=== PATIENT | male | born 1975 | race Caucasian/White ===

== ENCOUNTER 2017-02-24 07:59 | Inpatient (IN) | payer BC, OTHER ==
[~2017-02-24] VITALS: Ht 182.9 cm; Wt 79.4 kg
--- NOTE | 2017-02-24 21:00 | NUR ---
Pre admission note Pt seen in intake office. Pt appears sober and stable at this time. V/S WNL. No s/s of distress noted at this time. Respirations even and unlabored. Policies on medication disposal explained to and understood by patient. Will admit patient to unit.
[2017-02-24] MEDS ORDERED: THIAMINE HCL 200 MG/2 ML VIAL IM ONE (21:15)
[2017-02-24] MEDS ORDERED: LORAZEPAM 1 MG TABLET PO PRN (21:15)
[2017-02-24] MEDS ORDERED: ACETAMINOPHEN 325 MG TABLET PO PRN (21:15)
[2017-02-24] MEDS ORDERED: LOPERAMIDE HCL 2 MG CAPSULE PO PRN ×2 (21:15)
[2017-02-24] MEDS ORDERED: MAGNESIUM HYDROXIDE 30 ML LIQUID UDC PO PRN (21:15)
[2017-02-24] MEDS ORDERED: ONDANSETRON 4 MG/2 ML VIAL IM PRN (21:15)
[2017-02-24] MEDS ORDERED: diphenhydrAMINE 50 MG CAPSULE PO PRN (21:15)
[2017-02-24] MEDS ORDERED: MAG HYDROX/AL HYDROX/SIMETH 30 ML LIQUID UDC PO PRN (21:15)
[2017-02-24] MEDS ORDERED: MIRALAX 17 GM POWD.PACK PO PRN (21:15)
[2017-02-24] MEDS ORDERED: LORAZEPAM 2 MG/1 ML VIAL IM PRN (21:15)
[2017-02-24] MEDS ORDERED: ONDANSETRON ODT 4 MG TAB.RAPDIS SL PRN (21:15)
--- NOTE | 2017-02-24 21:30 | NUR ---
Admission note Pt is a 41 yo male, A+Ox4, presenting to [facility] for ETOH dependence. Pt has NKA, is on Full Code status, and on Regular diet. Pt is 6'0" in height and 175 LBS in weight. Pt has medical HX of Pancreatitis, Seizure, HTN, and Depression. Pt has family HX of Alcohol abuse from Mother, Father, and Brother. Pt has no primary care provider. Pt has been drinking Alcohol for 20 years, has reached a level of 14-24 beers/daily, and last drink was 6 beers on 02-24-17 @1100. Pt has been taking home medications as follows: Zoloft 100mg 1 tablet QD-Last dose 1 tablet on 02-24-17 @2100, Lisinopril HCTZ 10-12.5mg 1 tablet QD-Last dose 1 tablet on 02-24-17 @1100. Pt has HX of previous detox/rehab for 5 days @ [facility] in [place], [place] in December 2016. This was the patients last time sober. Pt has been a cigarette smoker for 25 years and has reached a level of 15/daily. Pt appears sober and stable at this time. V/S WNL. No s/s of distress noted at this time. Respirations even and unlabored. Will continue to monitor.
[2017-02-24 21:56] LABS: *AMPHETAMINE, URINE NEGATIVE (NEGATIVE); *BARBITURATE, URINE NEGATIVE (NEGATIVE); *CANNABINOID, URINE NEGATIVE (NEGATIVE); *COCCAINE, URINE NEGATIVE (NEGATIVE); *OPIATE, URINE NEGATIVE (NEGATIVE); *PHENCYCLIDINE SCREEN,URINE NEGATIVE (NEGATIVE)
[2017-02-24 22:27] LABS: ALANINE AMINOTRANSFERASE 37 U/L (16-63); ALKALINE PHOSPHATASE 71 U/L (50-136); AMYLASE 47 U/L (25-115); ASPARTATE AMINOTRANSFERASE 24 U/L (15-37); BILIRUBIN,TOTAL 0.4 mg/dL (0.2-1.0); CARBON DIOXIDE 29 mmol/L (21-32); CHLORIDE 101 mmol/L (98-107); CREATININE 1.1 mg/dL (0.6-1.3); GLUCOSE 129 mg/dL (74-106); LIPASE 246 U/L (73-393); MAGNESIUM 2.1 mg/dL (1.8-2.4); POTASSIUM 3.8 mmol/L (3.5-5.1); TOTAL PROTEIN, SERUM 8.2 g/dL (6.4-8.2); UREA NITROGEN, BLOOD 14 mg/dL (7-18)
[2017-02-24 22:28] LABS: ETHANOL < 3 MG/DL (0-0)
[2017-02-24 22:30] LABS: BASOPHILS # (AUTO) 0.1 K/uL (0.0-8.0); BASOPHILS % (AUTO) 1.6 % (0.0-2.0); EOSINOPHILS # (AUTO) 0.1 K/uL (0.0-0.7); EOSINOPHILS % (AUTO) 1.2 % (0.0-7.0); HEMOGLOBIN 15.9 G/DL (14.0-18.0); LYMPHOCYTES # (AUTO) 1.9 K/UL (0.8-4.8); LYMPHOCYTES % (AUTO) 27.1 % (20.5-51.5); MEAN CORPUSCULAR HGB CONC 35 g/dL (32.0-37.0); MEAN CORPUSCULAR VOLUME 95.4 FL (82.0-92.0); MONOCYTES # (AUTO) 0.8 K/UL (0.1-1.30); MONOCYTES % (AUTO) 11.2 % (0.0-11.0); NEUTROPHILS % (AUTO) 58.9 % (38.5-71.5); PLATELET COUNT (AUTO) 217 K/UL (150-450); RED BLOOD CELL COUNT(AUTO) 4.82 MIL/UL (4.7-6.1); WHITE BLOOD COUNT (AUTO) 6.9 K/UL (4.0-11.2)
[2017-02-24 22:38] LABS: THYROID STIMULATING HORMONE 6.545 mIU/mL (0.358-3.740)
[2017-02-24] MEDS ORDERED: LISI1TAB9 PO (22:38)
[2017-02-24] MEDS ORDERED: SERT100T PO (22:38)
[2017-02-24] MEDS: LORAZEPAM 1 MG TABLET PO PRN (23:35)
--- NOTE | 2017-02-24 23:35 | NUR ---
PRN Ativan Pt c/o anxiety and noted with CIWA 6. PRN Ativan 1mg given and tolerated well. Will reassess within 1 HR. Will continue to monitor.
[2017-02-24] MEDS ORDERED: LORAZEPAM 1 MG TABLET ONE (23:39)
[2017-02-24] MEDS ORDERED: THIAMINE HCL 200 MG/2 ML VIAL ONE (23:39)
--- NOTE | 2017-02-25 00:30 | NUR ---
PRN Ativan Reassessment Medication effective. CIWA 3. No s/s of ASE/distress noted at this time. Respirations even and unlabored. Will continue to monitor.
[2017-02-25 00:59] VITALS: BP 131/97
[2017-02-25] MEDS: DICYCLOMINE HCL 20 MG TABLET PO PRN ×2 (04:20→12:27)
[2017-02-25] MEDS: LORAZEPAM 1 MG TABLET PO PRN ×2 (04:20→08:58)
--- NOTE | 2017-02-25 04:22 | NUR ---
PRN Ativan and Bentyl Pt c/o anxiety and abdominal spasms and noted with CIWA 6. PRN Ativan 1mg and PRN Bentyl given and tolerated well. Will reassess within 1 HR. Will continue to monitor.
[2017-02-25 04:27] VITALS: BP 146/87
[2017-02-25] MEDS ORDERED: LORAZEPAM 1 MG TABLET ONE (04:30)
[2017-02-25] MEDS ORDERED: DICYCLOMINE HCL 20 MG TABLET ONE (04:30)
--- NOTE | 2017-02-25 05:20 | NUR ---
PRN Ativan and Bentyl Reassessment Medications effective. Pt expresses reduction in abdominal spasms. CIWA:4. No s/s of ASE/distress noted at this time. Respirations even and unlabored. Will continue to monitor.
--- NOTE | 2017-02-25 06:55 | NUR ---
End of shift note Pt is a 41 yo male, A+Ox4, presenting to [facility] for ETOH dependence. Pt has NKA, is on Full Code status, and on Regular diet. Pt has medical HX of Pancreatitis, Seizure, HTN, and Depression. Pt is on Fall and Seizure precautions. Pt is on PRN medications until evaluation for taper by MD in AM. Pt was given PRN Ativan @2335 and PRN Ativan and Bentyl @0422. Pt slept for a total of 1 HR. Last CIWA: 4 @0520. No s/s of distress noted at this time. Respirations even and unlabored. Will endorse to day shift nurse.
--- NOTE | 2017-02-25 07:10 | NUR ---
Start of Shift Endorsement received from nightshift nurse. Pt is a 41 y/o male admitted for alcohol. Pt has been placed on a 5 day Ativan taper. Pt is tolerating the taper and moderately withdrawing AEB CIWA 9 at 0000. Pt has received PRN Ativan x2 and Bentyl for withdrawal symptoms. Pt reports sleeping 2 hours. VS WNL. Full Code. PT is alert and oriented x4. Pt is in STABLE condition at this time. Remains compliant with medication and diet regimen. All needs have been met, All safety measures in place per hospital policy. Bed in lowest position, side rails up x2, call-light within reach. Will continue to monitor
[2017-02-25 08:00] VITALS: BP 122/78
[2017-02-25] MEDS: THIAMINE HCL 100 MG TABLET PO SCH (08:53)
[2017-02-25] MEDS: FOLIC ACID 1 MG TABLET PO SCH (08:53)
[2017-02-25] MEDS: MULTIVITAMINS,THERAPEUTIC TABLET PO SCH (08:53)
[2017-02-25] MEDS ORDERED: TUBERCULIN,PURIF.PROT.DERIV. 5 TU/0.1 ML TEST ID ONE (09:00)
[2017-02-25] MEDS ORDERED: LORAZEPAM 1 MG TABLET PO PRN ×2 (10:15)
[2017-02-25] MEDS: SERTRALINE HCL 100 MG TABLET PO SCH (10:51)
[2017-02-25 12:00] VITALS: BP 141/94
[2017-02-25] MEDS: LORAZEPAM 1 MG TABLET PO SCH ×3 (12:27→20:51)
--- NOTE | 2017-02-25 12:27 | NUR ---
THONY Christiansen Administered PRN Bentyl for stomach cramps per Dr. Kendrick.
--- NOTE | 2017-02-25 13:51 | NUR ---
Therapist prompted clients about group times. Client stated he just got in and he will start attending group once he feels better.
[2017-02-25] MEDS: GABAPENTIN 300 MG CAPSULE PO SCH ×2 (15:30→20:51)
[2017-02-25 16:00] VITALS: BP 142/97
--- NOTE | 2017-02-25 18:49 | NUR ---
End of Shift Endorsement given to nightshift nurse. Pt is a 41 y/o male admitted for alcohol. Pt has been placed on a 5 day Ativan taper. Pt is tolerating the taper and moderately withdrawing AEB CIWA 6 at 1600. Pt has received PRN Ativan 1mg per MD for CIWA 8. PT has participated in groups and activities. Pt has received Bentyl for stomach cramps. Intake: 2300ml, Void x3, BM x1. VS WNL. Full Code. PT is alert and oriented x4. Pt is in STABLE condition at this time. Remains compliant with medication and diet regimen. All needs have been met, All safety measures in place per hospital policy. Bed in lowest position, side rails up x2, call-light within reach. Will continue to monitor
--- NOTE | 2017-02-25 19:02 | NUR ---
Start of shift note Received report from day shift nurse. Pt is a 41 yo male, A+Ox4, presenting to [facility] for ETOH dependence. Pt has NKA, is on Full Code status, and on Regular diet. Pt has medical HX of Pancreatitis, Seizure, HTN, and Depression. Pt is on Fall and Seizure precautions. Pt is on 5 day Ativan taper, tolerated well. No s/s of distress noted at this time. Respirations even and unlabored. Will continue to monitor.
[2017-02-25 20:12] VITALS: BP 151/107
[2017-02-25] MEDS: CLONIDINE HCL 0.1 MG TABLET PO PRN (20:51)
--- NOTE | 2017-02-25 20:51 | NUR ---
PRN Clonidine PT noted with b/p= 154/107. PRN Clonidine given and tolerated well. Will reassess within 1 HR. Will continue to monitor.
--- NOTE | 2017-02-25 21:45 | NUR ---
PRN Clonidine Reassessment Medication effective. B/P= 145/92. No s/s of ASE/distress noted at this time. Respirations even and unlabored. Will continue to monitor.
[2017-02-26 00:24] VITALS: BP 125/88
[2017-02-26 04:12] VITALS: BP 128/85
[2017-02-26] MEDS: HYDROXYZINE PAMOATE 25 MG CAPSULE PO PRN ×2 (06:06→23:28)
--- NOTE | 2017-02-26 06:06 | NUR ---
PRN Vistaril PT c/o anxiety and requested for PRN Vistaril. Medication given and tolerated well. Will reassess within 1 HR. Will continue to monitor.
--- NOTE | 2017-02-26 06:52 | NUR ---
PRN Vistaril Reassessment Medication moderately effective. No s/s of ASE/distress noted at this time. Respirations even and unlabored. Will continue to monitor.
--- NOTE | 2017-02-26 07:00 | NUR ---
End of shift note Pt is a 41 yo male, A+Ox4, presenting to [facility] for ETOH dependence. Pt has NKA, is on Full Code status, and on Regular diet. Pt has medical HX of Pancreatitis, Seizure, HTN, and Depression. Pt is on Fall and Seizure precautions. Pt is on 5 day Ativan taper, tolerated well. Pt was given PRN Clonidine @1 and PRN Vistaril @0606. Pt slept for a total of 9 HRS. Last CIWA: 3 @0400. No s/s of distress noted at this time. Respirations even and unlabored. Will endorse to day shift nurse.
[2017-02-26 07:11] LABS: HEPATITIS B SURFACE AG Negative (Negative)
--- NOTE | 2017-02-26 07:30 | NUR ---
START OF SHIFT Pt 24 y/o male admitted for etoh dependence. Pt received in room awake on bed watching television. Pt alert and oriented to name, place, and time. Perrla. Skin warm and moist to touch. Respirations even and unlabored. Pt with bilateral hand tremors noted. Pt states has body aches. It was reported that pt slept for 9 hours last night. Bed on lowest position with side rails x2 up for safety. Call light within reach. No distress noted at this time.
[2017-02-26 08:00] VITALS: BP 130/90
[2017-02-26] MEDS: SERTRALINE HCL 100 MG TABLET PO SCH (08:22)
[2017-02-26] MEDS: IBUPROFEN 400 MG TABLET PO PRN (08:22)
[2017-02-26] MEDS: LORAZEPAM 1 MG TABLET PO SCH ×3 (08:22→20:18)
[2017-02-26] MEDS: THIAMINE HCL 100 MG TABLET PO SCH (08:22)
[2017-02-26] MEDS: LISINOPRIL 10 MG TABLET PO SCH (08:22)
[2017-02-26] MEDS: HYDROCHLOROTHIAZIDE 12.5 MG CAPSULE PO SCH (08:22)
[2017-02-26] MEDS: FOLIC ACID 1 MG TABLET PO SCH (08:22)
--- NOTE | 2017-02-26 08:22 | NUR ---
PRN Pt with c/o headache 10/27. Motrin po prn per MD order given and tolerated well.
[2017-02-26] MEDS: MULTIVITAMINS,THERAPEUTIC TABLET PO SCH (08:23)
[2017-02-26] MEDS: GABAPENTIN 300 MG CAPSULE PO SCH ×3 (08:23→20:18)
[2017-02-26] MEDS ORDERED: HCTZ PO SCH (09:00)
[2017-02-26] MEDS ORDERED: LISINOPRIL PO SCH (09:00)
--- NOTE | 2017-02-26 09:22 | NUR ---
THONY YUSUF Pt states headache 2/10 at this time. Pt observed in room on bed watching television.
--- NOTE | 2017-02-26 09:50 | NUR ---
NSG ENTRY MD aware of tsh=6.5.
[2017-02-26 12:00] VITALS: BP 128/82
[2017-02-26] MEDS: METHOCARBAMOL 750 MG TABLET PO PRN (13:22)
--- NOTE | 2017-02-26 13:25 | NUR ---
PRN Pt with c/o body aches 7/10 generalized. robaxin po prn per MD order given and tolerated well.
--- NOTE | 2017-02-26 14:25 | NUR ---
PRN EVAL Pt observed in bed watching television. No c/o pain noted at this time.
[2017-02-26 16:00] VITALS: BP 132/68
--- NOTE | 2017-02-26 18:00 | NUR ---
END OF SHIFT Pt 41 y/o male admitted for ETOH dependence. Pt alert and oriented to name, place, and time. Perrla. Skin warm and slightly moist to touch. Respirations even and unlabored. Bilateral hand tremors noted slightly. Pt observed mostly in room, but did attend group activity. Pt was seen by MD today. Pt medication compliant and tolerated well. No ASE noted. Bed on lowest position with side rails x2 up for safety. Call light within reach. No distress noted at this time.
--- NOTE | 2017-02-26 19:11 | NUR ---
Start of shift note Received report from day shift nurse. Pt is a 41 yo male, A+Ox4, presenting to [facility] for ETOH dependence. Pt has NKA, is on Full Code status, and on Regular diet. Pt has medical HX of Pancreatitis, Seizure, HTN, and Depression. Pt is on Fall and Seizure precautions. Pt is on 5 day Ativan taper, tolerated well. No s/s of distress noted at this time. Respirations even and unlabored. Will continue to monitor.
[2017-02-26 20:15] VITALS: BP 131/98
--- NOTE | 2017-02-26 23:28 | NUR ---
PRN Vistaril PT c/o anxiety and requested for PRN Vistaril. Medication given and tolerated well. Will reassess within 1 HR. Will continue to monitor.
[2017-02-27 00:10] VITALS: BP 135/81
--- NOTE | 2017-02-27 00:20 | NUR ---
PRN Vistaril Reassessment Medication effective. No s/s of ASE/distress noted at this time. Respirations even and unlabored. Will continue to monitor.
[2017-02-27 04:40] VITALS: BP 133/84
--- NOTE | 2017-02-27 07:00 | NUR ---
End of shift note Pt is a 41 yo male, A+Ox4, presenting to [facility] for ETOH dependence. Pt has NKA, is on Full Code status, and on Regular diet. Pt has medical HX of Pancreatitis, Seizure, HTN, and Depression. Pt is on Fall and Seizure precautions. Pt is on 5 day Ativan taper, tolerated well. Pt was given PRN Vistaril @2328. Pt slept for a total of 7 HRS. Last CIWA: 3 @0400. No s/s of distress noted at this time. Respirations even and unlabored. Will endorse to day shift nurse.
--- NOTE | 2017-02-27 07:45 | NUR ---
START OF SHIFT Pt 24 y/o male admitted for etoh dependence. Pt received in awake walking around the hallway. Pt alert and oriented to name, place, and time. Perrla. Skin warm and moist to touch. Respirations even and unlabored. Pt with bilateral hand tremors noted. Pt states has body aches. It was reported that pt slept for 7 hours last night. Bed on lowest position with side rails x2 up for safety. Call light within reach. No distress noted at this time.
[2017-02-27 08:40] VITALS: BP 134/104
[2017-02-27] MEDS: THIAMINE HCL 100 MG TABLET PO SCH (09:01)
[2017-02-27] MEDS: MULTIVITAMINS,THERAPEUTIC TABLET PO SCH (09:02)
[2017-02-27] MEDS: SERTRALINE HCL 100 MG TABLET PO SCH (09:02)
[2017-02-27] MEDS: FOLIC ACID 1 MG TABLET PO SCH (09:02)
[2017-02-27] MEDS: GABAPENTIN 300 MG CAPSULE PO SCH ×3 (09:02→20:28)
[2017-02-27] MEDS: LISINOPRIL 10 MG TABLET PO SCH (09:02)
[2017-02-27] MEDS: LORAZEPAM 1 MG TABLET PO SCH ×4 (09:02→20:27)
[2017-02-27] MEDS: HYDROCHLOROTHIAZIDE 12.5 MG CAPSULE PO SCH (09:02)
[2017-02-27] MEDS: METHOCARBAMOL 750 MG TABLET PO PRN (09:02)
[2017-02-27] MEDS: IBUPROFEN 400 MG TABLET PO PRN (09:02)
--- NOTE | 2017-02-27 09:02 | NUR ---
PRN Pt states has body aches 5/10.
--- NOTE | 2017-02-27 09:02 | NUR ---
PRN Pt states has headache 4/10. Motrin po prn per MD order given and tolerated well.
--- NOTE | 2017-02-27 10:02 | NUR ---
PRN EVAL Pt states body aches 08/29.
--- NOTE | 2017-02-27 10:02 | NUR ---
PRN EVAL Pt states headache 07/29.
[2017-02-27 13:34] VITALS: BP 143/100
[2017-02-27] MEDS: HYDROXYZINE PAMOATE 25 MG CAPSULE PO PRN ×2 (14:00→20:29)
[2017-02-27] MEDS: CLONIDINE HCL 0.1 MG TABLET PO PRN (14:01)
--- NOTE | 2017-02-27 14:01 | NUR ---
PRN Pt with SP=578/102.
--- NOTE | 2017-02-27 14:01 | NUR ---
PRN Pt states feel anxious and restless. Vistaril po prn per MD order given and tolerated well.
--- NOTE | 2017-02-27 15:01 | NUR ---
THONY YUSUF Pt observed in room on bed watching television.
--- NOTE | 2017-02-27 15:01 | NUR ---
PRN EVAL Pt with bp= 138/92.
[2017-02-27 17:24] VITALS: BP 129/82
--- NOTE | 2017-02-27 18:26 | NUR ---
END OF SHIFT Pt 41 y/o male admitted for ETOH dependence. Pt alert and oriented to name, place, and time. Perrla. Skin warm and slightly moist to touch. Respirations even and unlabored. Bilateral hand tremors noted slightly. Pt observed mostly in room this morning, but did attend group activity. Pt was seen by MD today. Pt medication compliant and tolerated well. No ASE noted. Bed on lowest position with side rails x2 up for safety. Call light within reach. No distress noted at this time.
--- NOTE | 2017-02-27 20:29 | NUR ---
PRN: VISTARIL. C/o feeling anxious and wanting to take his night medication. Vistaril given per request. patient tolerated well. Will continue to monitor closely.
--- NOTE | 2017-02-27 20:45 | NUR ---
Rec'd 41 y/o male with cc:ETOH dependence. Patient is afebrile and vital signs are stable. No c/o pain at this time. Patient is on a 5 day Ativan taper and tolerated well. During the day, patient attends group activity. Patient does not ambulates in hallways and mostly stay in his room during the clinical safety manager. No other concerns at this time. Reviewed current plan of care. patient voiced understanding. Pt is on Fall and Seizure precautions. Bed is in the lowest position, side rails are up and call light within reach. Will continue to monitor patient closely.
--- NOTE | 2017-02-27 21:29 | NUR ---
Reassessment. Patient resting comfortably in bed with eyes closed. No signs of distress. Will continue to monitor closely.
[2017-02-27 22:45] VITALS: BP 129/79
[2017-02-28 00:39] VITALS: BP 112/62
--- NOTE | 2017-02-28 02:22 | NUR ---
PRN: Vistaril. Patient c/o feeling anxious and would like to take Vistaril now. Medicated with Vistaril as ordered. Patient tolerated well. Will continue to monitor closely.
[2017-02-28 04:54] VITALS: BP 121/86
--- NOTE | 2017-02-28 06:41 | NUR ---
No interval changes during the shift. Afebrile and vital signs are stable. Respirations even and unlabored. Bilateral hand tremors noted slightly. Pt slept majority of the shift. Ciwa @ 1. No other concerns at this time. All needs were met. Safety and seizure precaution maintained. Bed in lowest position with side rails x2 up for safety. Call light within reach. No distress noted at this time.
--- NOTE | 2017-02-28 07:46 | NUR ---
START OF SHIFT Pt 24 y/o male admitted for etoh dependence. Pt received in awake on bed watching television. Pt alert and oriented to name, place, and time. Perrla. Skin warm and moist to touch. Respirations even and unlabored. Pt with bilateral hand tremors noted. Pt states has body aches this morning. It was reported that pt slept for 8 hours last night. Bed on lowest position with side rails x2 up for safety. Call light within reach. No distress noted at this time.
[2017-02-28] MEDS: LORAZEPAM 1 MG TABLET PO SCH ×3 (08:20→20:22)
[2017-02-28] MEDS: METHOCARBAMOL 750 MG TABLET PO PRN (08:20)
[2017-02-28] MEDS: MULTIVITAMINS,THERAPEUTIC TABLET PO SCH (08:21)
[2017-02-28] MEDS: SERTRALINE HCL 100 MG TABLET PO SCH (08:21)
[2017-02-28] MEDS: HYDROCHLOROTHIAZIDE 12.5 MG CAPSULE PO SCH (08:21)
[2017-02-28] MEDS: HYDROXYZINE PAMOATE 25 MG CAPSULE PO PRN ×3 (08:21→20:22)
[2017-02-28] MEDS: GABAPENTIN 300 MG CAPSULE PO SCH ×2 (08:21→14:18)
[2017-02-28] MEDS: LISINOPRIL 10 MG TABLET PO SCH (08:21)
[2017-02-28] MEDS: FOLIC ACID 1 MG TABLET PO SCH (08:21)
[2017-02-28] MEDS: THIAMINE HCL 100 MG TABLET PO SCH (08:21)
--- NOTE | 2017-02-28 08:27 | NUR ---
PRN Pt states has anxiety. Vistaril po prn per MD order given and tolerated well.
--- NOTE | 2017-02-28 08:27 | NUR ---
PRN Pt states has body aches 6/10. Robaxin po prn per MD order given and tolerated well.
[2017-02-28 08:28] VITALS: BP 127/83
--- NOTE | 2017-02-28 09:27 | NUR ---
THONY YUSUF Pt observed sitting in room watching television. No distress noted at this time.
--- NOTE | 2017-02-28 09:27 | NUR ---
PRN MADELIN Pt states pain 08/29.
[2017-02-28 13:24] VITALS: BP 120/80
--- NOTE | 2017-02-28 14:20 | NUR ---
PRN Pt stated feels anxious. Vistaril po prn per MD order given and tolerated well.
--- NOTE | 2017-02-28 15:20 | NUR ---
PRN EVAL Pt observed walking around unit. Pt states medication was effective.
--- NOTE | 2017-02-28 16:47 | NUR ---
PRN Pt with rf=958/104. Catapres po prn per MD order given and tolerated well. Addendum: 02/28/17 at 1821 by KEMAR LEIVA RN INCORRECT PT
[2017-02-28 17:15] VITALS: BP 141/76
[2017-02-28] MEDS: CLONIDINE HCL 0.1 MG TABLET PO PRN (18:16)
--- NOTE | 2017-02-28 18:17 | NUR ---
PRN Pt states feels anxious. Catapre po prn per MD order given and tolerated well.
--- NOTE | 2017-02-28 18:21 | NUR ---
END OF SHIFT Pt 41 y/o male admitted for ETOH dependence. Pt alert and oriented to name, place, and time. Perrla. Skin warm and slightly moist to touch. Respirations even and unlabored. Bilateral hand tremors noted slightly. `Pt observed mostly in room this morning, but attended group activity. Pt was seen by MD today. Pt medication compliant and tolerated well. No ASE noted. Bed on lowest position with side rails x2 up for safety. Call light within reach. No distress noted at this time.
[2017-02-28] MEDS ORDERED: hydrALAZINE HCL 25 MG TABLET PO PRN (19:00)
[2017-02-28] MEDS ORDERED: BACLOFEN 20 MG TABLET PO PRN (19:00)
[2017-02-28] MEDS: CLONIDINE HCL 0.1 MG TABLET PO SCH (20:21)
[2017-02-28] MEDS: GABAPENTIN 400 MG CAPSULE PO SCH (20:22)
--- NOTE | 2017-02-28 20:22 | NUR ---
PRN Vistaril: Patient c/o feeling anxious and would like Vistaril. Vistaril given as ordered. Will continue to monitor closely.
[2017-02-28] MEDS ORDERED: GABAPENTIN 400 MG CAPSULE ONE (20:31)
[2017-02-28] MEDS ORDERED: CLONIDINE HCL 0.1 MG TABLET ONE (20:31)
[2017-02-28 20:32] VITALS: BP 118/78
--- NOTE | 2017-02-28 20:50 | NUR ---
Start of shift. Rec'd 41 y/o male with cc:ETOH dependence. Patient is afebrile and vital signs are stable. No c/o pain at this time. Patient is on a 5 day Ativan taper and tolerating well. Patient does participate in group meeting and activities. Patient c/o feeling anxious and request Vistaril. CIWA score is 2. No other concerns at this time. Reviewed current plan of care. patient voiced understanding. Pt is on Fall and Seizure precautions. Bed is in the lowest position, side rails are up and call light within reach. Will continue to monitor patient closely.
--- NOTE | 2017-02-28 21:22 | NUR ---
Vistaril reassessment: Patient resting quietly in bed with no signs of distress. Will continue to monitor closely.
[2017-03-01 00:16] VITALS: BP 115/72
[2017-03-01 05:02] VITALS: BP 110/72
--- NOTE | 2017-03-01 06:56 | NUR ---
EOS report: No interval changes during the shift. Afebrile and vital signs are stable. Respirations even and unlabored. Bilateral hand tremors noted slightly. Pt slept majority of the shift. A total of 7 hrs. Ciwa @ 2. No other concerns at this time. All needs were met. Safety and seizure precaution maintained. Bed in lowest position with side rails x2 up for safety. Call light within reach. No distress noted at this time. Will endorse to oncoming shift to follow up care.
--- NOTE | 2017-03-01 07:09 | NUR ---
Start of Shift Endorsement received from nightshift nurse. Pt is a 41 y/o male admitted for alcohol. Pt has been placed on a 5 day Ativan taper. Pt is tolerating the taper and mildly withdrawing AEB CIWA 2 at 0400. Pt has received PRN Clonidine and Vistaril for withdrawal symptoms during nightshift. Pt reports sleeping 8 hours. VS WNL. Full Code. PT is alert and oriented x4. Pt is in STABLE condition at this time. Remains compliant with medication and diet regimen. All needs have been met, All safety measures in place per hospital policy. Bed in lowest position, side rails up x2, call-light within reach. Will continue to monitor
[2017-03-01 08:00] VITALS: BP 115/78
[2017-03-01] MEDS: THIAMINE HCL 100 MG TABLET PO SCH (09:12)
[2017-03-01] MEDS: SERTRALINE HCL 100 MG TABLET PO SCH (09:13)
[2017-03-01] MEDS: HYDROCHLOROTHIAZIDE 12.5 MG CAPSULE PO SCH (09:13)
[2017-03-01] MEDS: LISINOPRIL 10 MG TABLET PO SCH (09:13)
[2017-03-01] MEDS: GABAPENTIN 400 MG CAPSULE PO SCH ×3 (09:14→21:41)
[2017-03-01] MEDS: CLONIDINE HCL 0.1 MG TABLET PO SCH ×2 (09:14→21:42)
[2017-03-01] MEDS: LORAZEPAM 1 MG TABLET PO SCH ×2 (09:14→21:38)
[2017-03-01] MEDS: MULTIVITAMINS,THERAPEUTIC TABLET PO SCH (09:14)
[2017-03-01] MEDS: FOLIC ACID 1 MG TABLET PO SCH (09:14)
[2017-03-01 12:00] VITALS: BP 122/85
[2017-03-01 16:00] VITALS: BP 126/77
--- NOTE | 2017-03-01 18:59 | NUR ---
End of Shift Endorsement given to nightshift nurse. Pt is a 41 y/o male admitted for alcohol. Pt has been placed on a 5 day Ativan taper. Pt is tolerating the taper and mildly withdrawing AEB CIWA 1 at 1600. Pt did not receive any PRN medications. PT reports readiness for sobriety and discharge. PT has participated in groups and activities. Encouraged pt to drink more fluids. Educated pt on deep breathing techniques to help relieve minor episodes of anxiety. Intake: 2090ml, Void x6, BM x1. VS WNL. Full Code. PT is alert and oriented x4. Pt is in STABLE condition at this time. Remains compliant with medication and diet regimen. All needs have been met, All safety measures in place per hospital policy. Bed in lowest position, side rails up x2, call-light within reach. Will continue to monitor
[2017-03-01 20:19] VITALS: BP 130/97
--- NOTE | 2017-03-01 20:30 | NUR ---
Start of shift. Rec'd 41 y/o male with cc:ETOH dependence. Patient is afebrile and vital signs are stable. No c/o pain at this time. Patient is on a 5 day Ativan taper and tolerating well. Patient does participate in group meeting and activities. Patient c/o feeling anxious and request Vistaril. CIWA score is 1. No other concerns at this time. Reviewed current plan of care. Patient voiced understanding. Pt is on Fall and Seizure precautions. Bed is in the lowest position, side rails are up and call light within reach. Will continue to monitor patient closely.
[2017-03-01] MEDS: HYDROXYZINE PAMOATE 25 MG CAPSULE PO PRN (21:37)
--- NOTE | 2017-03-01 21:37 | NUR ---
PRN Vistaril: C/o feeling a little anxious. Medicated with Vistaril per request. Will continue to monitor closely.
--- NOTE | 2017-03-01 22:55 | NUR ---
Reassessment Vistaril: Resting comfortably in bed with eyes closed. No signs of distress. Will continue to monitor closely.
[2017-03-02 00:14] VITALS: BP 116/65
[2017-03-02 04:39] VITALS: BP 101/57
--- NOTE | 2017-03-02 06:34 | NUR ---
EOS report: No interval changes during the shift. Afebrile and vital signs are stable. Respirations even and unlabored. Bilateral hand tremors noted slightly. Pt slept a total of 5 hrs. Ciwa @ 1. Patient rec'd Vistaril once for anxiety. No other concerns at this time. All needs were met. Safety and seizure precaution maintained. Bed in lowest position with side rails x2 up for safety. Call light within reach. No distress noted at this time. Will endorse to oncoming shift to follow up care.
--- NOTE | 2017-03-02 07:08 | NUR ---
Start of Shift Endorsement received from nightshift nurse. Pt is a 41 y/o male admitted for alcohol. Pt has been placed on a 5 day Ativan taper. Pt is tolerating the taper and mildly withdrawing AEB CIWA 1 at 0400. Pt has received PRN Vistaril for withdrawal symptoms during nightshift. Pt reports sleeping 5 hours. PT is scheduled to complete his taper today, 03/02/17. Pt reports readiness for sobriety. VS WNL. Full Code. PT is alert and oriented x4. Pt is in STABLE condition at this time. Remains compliant with medication and diet regimen. All needs have been met, All safety measures in place per hospital policy. Bed in lowest position, side rails up x2, call-light within reach. Will continue to monitor
[2017-03-02 08:00] VITALS: BP 101/71
[2017-03-02] MEDS: SERTRALINE HCL 100 MG TABLET PO SCH (08:32)
[2017-03-02] MEDS: FOLIC ACID 1 MG TABLET PO SCH (08:32)
[2017-03-02] MEDS: GABAPENTIN 400 MG CAPSULE PO SCH ×3 (08:32→21:00)
[2017-03-02] MEDS: MULTIVITAMINS,THERAPEUTIC TABLET PO SCH (08:34)
[2017-03-02] MEDS: CLONIDINE HCL 0.1 MG TABLET PO SCH ×2 (08:34→21:00)
[2017-03-02] MEDS: LISINOPRIL 10 MG TABLET PO SCH (08:34)
[2017-03-02] MEDS: THIAMINE HCL 100 MG TABLET PO SCH (08:34)
[2017-03-02] MEDS: HYDROCHLOROTHIAZIDE 12.5 MG CAPSULE PO SCH (08:36)
[2017-03-02 12:00] VITALS: BP 120/75
[2017-03-02] MEDS ORDERED: GABA-536 PO (13:54)
[2017-03-02] MEDS ORDERED: CLON0.1T14 PO (13:54)
[2017-03-02] MEDS ORDERED: HYDR-3895 PO (13:54)
[2017-03-02 17:00] VITALS: BP 132/94
--- NOTE | 2017-03-02 19:05 | NUR ---
End of Shift Endorsement given to nightshift nurse. Pt is a 41 y/o male admitted for alcohol. Pt has been placed on a 5 day Ativan taper. Pt is tolerating the taper and mildly withdrawing AEB CIWA 1 at 1600. Pt did not receive any PRN medications. PT reports readiness for sobriety and discharge. PT has been scheduled for discharge on 03/03/17. All discharge education and documentation has been completed. Urine has been collected for UDS. PT has participated in groups and activities. Encouraged pt to drink more fluids. Educated pt on deep breathing techniques to help relieve minor episodes of anxiety. Intake: 4200ml, Void x6, BM x1. VS WNL. Full Code. PT is alert and oriented x4. Pt is in STABLE condition at this time. Remains compliant with medication and diet regimen. All needs have been met, All safety measures in place per hospital policy. Bed in lowest position, side rails up x2, call-light within reach. Will continue to monitor
--- NOTE | 2017-03-02 19:06 | NUR ---
Start of shift note Received report from day shift nurse. Pt is a 41 yo male, A+Ox4, presenting to [facility] for ETOH dependence. Pt has NKA, is on Full Code status, and on Regular diet. Pt has medical HX of Pancreatitis, Seizure, HTN, and Depression. Pt is on Fall and Seizure precautions. Pt has completed 5 day Ativan taper, tolerated well, and is due for discharge tomorrow. No s/s of distress noted at this time. Respirations even and unlabored. Will continue to monitor.
[2017-03-02 20:38] VITALS: BP 127/88
[2017-03-02 22:13] LABS: *AMPHETAMINE, URINE NEGATIVE (NEGATIVE); *BARBITURATE, URINE NEGATIVE (NEGATIVE); *CANNABINOID, URINE NEGATIVE (NEGATIVE); *COCCAINE, URINE NEGATIVE (NEGATIVE); *OPIATE, URINE NEGATIVE (NEGATIVE); *PHENCYCLIDINE SCREEN,URINE NEGATIVE (NEGATIVE)
[2017-03-03 00:59] VITALS: BP 121/85
[2017-03-03 04:08] VITALS: BP 118/81
--- NOTE | 2017-03-03 07:00 | NUR ---
End of shift note Pt is a 41 yo male, A+Ox4, presenting to [facility] for ETOH dependence. Pt has NKA, is on Full Code status, and on Regular diet. Pt has medical HX of Pancreatitis, Seizure, HTN, and Depression. Pt is on Fall and Seizure precautions. Pt is on 5 day Ativan taper, tolerated well. Pt slept for a total of 8 HRS. Last CIWA: 1 @0400. No s/s of distress noted at this time. Respirations even and unlabored. Will endorse to day shift nurse.
--- NOTE | 2017-03-03 07:35 | NUR ---
START OF SHIFT Received report from shift manager nurse. Pt is a 41 year old male patient that was admitted on 02/24/17 for ETOH withdrawals. Pt has completed ordered 5 day Ativan taper and is medically cleared for discharge.Pt is A/O x4. Reports medical hx of pancreatitis, seizures, HTN and depression. Pt remains seizure free throughout hospitalization. No PRN medications were needed or administered at night. Pt slept for 8 hours. V/S remain stable and WNL. Most recent CIWA at 0400 was 1. Pt is awake at the time, walking on the unit. Denies discomfort no distress noted. All needs met, will continue to monitor.
[2017-03-03 08:05] VITALS: BP 118/78
[2017-03-03 08:10] VITALS: BP 118/78
[2017-03-03] MEDS: MULTIVITAMINS,THERAPEUTIC TABLET PO SCH (08:10)
[2017-03-03] MEDS: HYDROCHLOROTHIAZIDE 12.5 MG CAPSULE PO SCH (08:10)
[2017-03-03] MEDS: SERTRALINE HCL 100 MG TABLET PO SCH (08:10)
[2017-03-03] MEDS: FOLIC ACID 1 MG TABLET PO SCH (08:10)
[2017-03-03] MEDS: LISINOPRIL 10 MG TABLET PO SCH (08:10)
[2017-03-03] MEDS: GABAPENTIN 400 MG CAPSULE PO SCH (08:10)
[2017-03-03] MEDS: THIAMINE HCL 100 MG TABLET PO SCH (08:10)
[2017-03-03] MEDS: CLONIDINE HCL 0.1 MG TABLET PO SCH (08:10)
--- NOTE | 2017-03-03 09:35 | NUR ---
D/C NOTES Pt is A/O x4. V/S remain WNL. Pt denies SI/HI or hallucinations. Pt shows no s/s of acute withdrawal at this time, and is stable. MD has medically cleared pt for d/c. Education on Hepatitis C, smoking cessation and medication side effects provided. Pt verbalizes understanding. All pt belongings are in belonging bag, including prescriptions, and home medications. Refuses PNU vaccination. Pt is being accompanied by TECHNOLOGY RECRUITER at this time to be transported to rehab. All needs met.
== END 2017-03-03 09:35 | disposition other institution (70) | DRG 895 ==
LOC: SRC 20:06
PROVIDERS: ADMIT Internal Medicine; ATTEND Internal Medicine
PROC: HZ2ZZZZ Detoxification Services for Substance Abuse Treatment (ICD-10-PCS; principal; 2017-02-24)
PROC: HZ41ZZZ Group Counseling for Substance Abuse Treatment, Behavioral (ICD-10-PCS; 2017-02-27)
DX: F10.230 Alcohol dependence with withdrawal, uncomplicated (principal); F33.2 Major depressive disorder, recurrent severe without psychotic features; Y90.0 Blood alcohol level of less than 20 mg/100 ml; Z81.1 Family history of alcohol abuse and dependence; I10 Essential (primary) hypertension; Z79.899 Other long term (current) drug therapy; E07.81 Sick-euthyroid syndrome; R73.9 Hyperglycemia, unspecified; F17.210 Nicotine dependence, cigarettes, uncomplicated
CPT/HCPCS: 36415; 70030-TC; 80307; 83690; 83735; 84443; 85025; 86580; 86592; 86705; 86803; 87340; 87806; G0480; J3411